=== PATIENT | female | born 1990 | race Asian ===

== ENCOUNTER 2019-07-05 09:57 | Emergency (ER) | payer BC ==
[~2019-07-05] VITALS: Ht 154.9 cm; Wt 70.3 kg
[2019-07-05 10:03] VITALS: Ht 154.9 cm; Wt 70.3 kg
[2019-07-05 11:24] VITALS: BP 118/82
== END 2019-07-05 11:55 | disposition home or self-care (01) ==
LOC: ED 09:57
DX: S16.1XXA Strain of muscle, fascia and tendon at neck level, initial encounter (principal); S43.401A Unspecified sprain of right shoulder joint, initial encounter; S09.90XA Unspecified injury of head, initial encounter; V49.9XXA Car occupant (driver) (passenger) injured in unspecified traffic accident, initial encounter; Y93.I9 Activity, other involving external motion; Y92.413 State road as the place of occurrence of the external cause; Y99.8 Other external cause status
CPT/HCPCS: Q0092